=== PATIENT | female | born 1955 | race Two or more races ===

== ENCOUNTER 2016-12-11 16:30 | Emergency (ER) | payer MEDICAID ==
[~2016-12-11] VITALS: Ht 152.4 cm; Wt 84.1 kg
[~2016-12-11 16:30] MED LIST: ASPI-496 PO; ATOR20TA9 PO; LEVO50TA5 PO; LORA0.5T PO; LOSA1TAB18 PO; OMEP-110 PO; POTA10TA11 PO
[2016-12-11] MEDS ORDERED: MAALOX/HYOSCYAMINE/LIDOCAINE 45 ML BOTTLE ONE (16:55)
[2016-12-11] MEDS ORDERED: SODIUM CHLORIDE FLUSH 10ML SYR IVF ONE (17:00)
[2016-12-11] MEDS ORDERED: MAALOX/HYOSCYAMINE/LIDOCAINE 45 ML BOTTLE PO ONE (17:00)
[2016-12-11 17:10] LABS: BLOOD UREA NITROGEN 17 mg/dL (7-18)
[2016-12-11 17:17] LABS: IS PT STATUS REG ER OR PRE ER? YES
[2016-12-11] MEDS ORDERED: LOSA1TAB17 PO (17:53)
[2016-12-11] MEDS ORDERED: CHOL100018 PO (17:54)
[2016-12-11] MEDS ORDERED: MULT-752 PO (17:54)
[2016-12-11] MEDS ORDERED: FAMOTIDINE 20 MG TABLET PO ONE (18:00)
[2016-12-11] MEDS ORDERED: POTASSIUM CHLORIDE 20 MEQ TAB.ER.PRT PO ONE (18:00)
[2016-12-11] MEDS ORDERED: FAMOTIDINE 20 MG TABLET ONE (18:02)
[2016-12-11] MEDS ORDERED: POTASSIUM CHLORIDE 20 MEQ TAB.ER.PRT ONE (18:02)
[2016-12-11 19:45] LABS: IS PT STATUS REG ER OR PRE ER? YES
[2016-12-11 20:01] VITALS: BP 123/70
== END 2016-12-11 20:19 | disposition home or self-care (01) ==
LOC: ED 19:09
DX: R07.2 Precordial pain (principal); I10 Essential (primary) hypertension
CPT/HCPCS: 36415; 71010; 80048; 82040; 83880; 84484; 85025; 93005